=== PATIENT | female | born 1985 | race Caucasian/White ===

== ENCOUNTER 2016-06-08 18:16 | Inpatient (IN) | payer MEDICAID ==
[2016-06-08] MEDS ORDERED: Metoclopramide 10 MG/2 ML SDV ONE (18:23)
[2016-06-08] MEDS ORDERED: Citric Acid/Sodium Citrate Solution 30 ML Cup ONE ×2 (18:23→18:24)
[2016-06-08] MEDS ORDERED: Lactated Ringers 1,000 ML ONE (18:23)
[2016-06-08] MEDS: Lactated Ringers 1,000 ML IV SCH ×2 (19:15→20:00)
--- NOTE | 2016-06-08 19:20 | PCM.LDHP ---
<Shauna Jarquincelyn - Last Filed: 06/08/16 18:53> L&D History of Present Illness - General Date of Service: 06/08/16 Admit Problem/Dx: Admission Diagnosis/Problem Admission Diagnosis/Problem 06/08/16 18:53 Intrauterine at 38-1/7 weeks gestation with onset of labor and history of sections x2. Source of Information: Patient History Limitations: Reports: No limitations - History of Present Illness Introduction:: History of Present Illness: Rea is a 31-year-old 3 para 2-0-0-2 female with JOHN of 06/21/2016. She was scheduled for a repeat section on 06/16/16 but presented to clinic this afternoon with contractions that had been going on since earlier this morning. A contraction stress test was done in clinic and was negative - showed contractions every 3 minutes without HR decelerations. The procedure of repeat section, alternatives of care, risks and benefits, as well as followup were discussed with the patient. She decided to proceed with delivery this evening, once her gets to [facility] from working in [place]. [address] LIAISON History: The patient has had routine care throughout without complications except for some dry skin. LMP was before . Her previous two pregnancies ended in sections. First baby was born 2006 via emergent section and weighted 7lbs, 10oz. Second baby weighted 7lbs 11oz and was delivered via repeat section. Patient was not using control at time of conception. Her menses are typically regular , occurring every 28 days. Menarche was at age 17. No history of STIs. Blood type O positive, antibody negative. Rubella immune. VDRL/RPR nonreactive. Hepatitis B surface antigen negative. HIV test negative. Chlamydia and gonorrhea PCR also negative. Influenza vaccine was given. Tdap was declined. GBS positive. Medications: - vitamins Allergies: No known drug allergies. Past medical History: Noncontributory. Past surgical History: section x2. Family History: - Mom and dad are both alive and well. - Grandparents are all of unknown causes. - 2 brothers, 2 sisters - alive and well - 1 son, age 9 - alive and well - 1 daughter, age 4 - alive and well Social History: The patient lives in [place] with her significant other and two children. Patient denies use of tobacco products, alcohol, and illicit drugs. Review of Systems: - General: patient has been tired all day because she was up all night from contractions - Skin: no recent changes in skin or hair. - Cardiac: no palpitations or chest pain. - Respiratory: no shortness of breath or coughing - GI: negative. - : urinary changes related to Physical Exam: - General: The patient is a well-developed female in no acute distress. She has poor dentition and cracked lips. - Skin: warm and dry without lesions. - Cardiovascular: Regular rate and rhythm - Respiratory: Lungs clear to auscultation bilaterally - Breast exam: deferred - Abdomen: tightens with contractions. Uterus is gravid, appropriate with dates. - Cervical exam: closed, 0% effaced, -4 station, posterior - Extremities and neurological: grossly normal - Related Data Allergies/Adverse Reactions: Allergies Allergy/AdvReac Type Severity Reaction Status Date / Time No Known Allergies Allergy Verified 04/23/16 19:03 Home Medications: Home Meds . [No Known Home Meds] 08/23/15 [History] Past Medical History - Past Health History Medical/Surgical History: Denies Medical/Surgical History [address] LIAISON History: Reports: - Past Surgical History Female Surgical History: Reports: section (x 2) Social & Family History - Family History Family Medical History: Noncontributory - Tobacco Use Smoking Status *Q: Never Smoker Second Hand Smoke Exposure: No - Caffeine Use Caffeine Use: Reports: None - Alcohol Use Days Per Week of Alcohol Use: 0 - Recreational Drug Use Recreational Drug Use: No - Living Situation & Occupation Living situation: Reports: single, with family (2 kids) 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 Intrauterine at 38-1/7 weeks gestation admitted for repeat section secondary to onset of labor. 2. Group B strep positive 3. Declined Tdap vaccination Plan: 1. Repeat lower uterine segment transverse section under spinal block. Procedure, risk, benefits, complications have been discussed with the patient and she has signed the consent form. 2. SCDs for DVT prophylaxis during surgery and immediately after surgery 3. Ancef 2g IV for infection prophylaxis 4. Routine preoperative labs <Atilio Paz - Last Filed: 06/08/16 20:22> L&D History of Present Illness - General Admit Problem/Dx: Patient Status Order with Admit Dx/Problem 06/08/16 19:26 Patient Status [ADT] Routine Admission Diagnosis/Problem Admission Diagnosis/Problem H&P Review of Systems - Review of Systems: Review Of Systems: See Below L&D Exam - Exam Exam: See Below - Vital Signs Vital Signs: Last Vital Signs Temp 37.5 C 06/08/16 19:56 Pulse 84 06/08/16 19:56 Resp 19 06/08/16 19:56 BP 118/75 06/08/16 19:56 Pulse Ox 99 06/08/16 19:56 - Patient Data Lab Results last 24 hrs: Laboratory Results - last 24 hr 06/08/16 06/08/16 Range/Units 18:55 18:55 WBC 8.03 (3.98-10.04) K/mm3 RBC 4.79 (3.98-5.22) M/mm3 Hgb 12.9 (11.2-15.7) gm/L Hct 39.7 (34.1-44.9) % MCV 82.9 (79.4-94.8) fl MCH 26.9 (25.6-32.2) pg MCHC 32.5 (32.2-35.5) g/dl RDW Std Deviation 50.2 H (36.4-46.3) fL Plt Count 242 (182-369) K/mm3 MPV 12.1 (9.4-12.3) fl Neut % (Auto) 67.3 (34.0-71.1) % Lymph % (Auto) 22.9 (19.3-51.7) % Mcpherson % (Auto) 9.1 (4.7-12.5) % Eos % (Auto) 0.5 L (0.7-5.8) Baso % (Auto) 0.1 (0.1-1.2) % Neut # (Auto) 5.40 (1.56-6.13) K/mm3 Lymph # (Auto) 1.84 (1.18-3.74) K/mm3 Mcpherson # (Auto) 0.73 H (0.24-0.36) K/mm3 Eos # (Auto) 0.04 (0.04-0.36) K/mm3 Baso # (Auto) 0.01 (0.01-0.08) K/mm3 Blood Type O POSITIVE Gel Antibody Screen Negative Result Diagrams: 06/08/16 18:55 Problem List Initiated/Reviewed/Updated: Yes Orders Last 24hrs: Active Orders 24 hr Category Date Time Status Patient Status [ADT] Routine ADT 06/08/16 19:26 Active Communication Order [RC] ROUTINE Care 06/08/16 19:26 Active Heart Tones [RC] PER UNIT ROUTINE Care 06/08/16 19:26 Active Peripheral IV Care [RC] . DIRECTED Care 06/08/16 19:26 Active Procedure Site Prep Instruct [RC] ASDIRECTED Care 06/08/16 19:26 Active Verify Patient Consent Obtain [RC] PER UNIT ROUTINE Care 06/08/16 19:26 Active Vital Signs [RC] PFP Care 06/08/16 19:26 Active Citric Acid/Sodium Citrate [Bicitra Solution] Med 06/08/16 19:26 Once 30 ml PO ONETIME ONE Lactated Ringers [Ringers, Lactated] 1,000 ml Med 06/08/16 19:30 Ordered IV ASDIRECTED Metoclopramide [Reglan] Med 06/08/16 19:26 Once 10 mg IVPUSH ONETIME ONE Sodium Chloride 0.9% [Saline Flush] Med 06/08/16 19:26 Ordered 10 ml FLUSH ASDIRECTED PRN ceFAZolin [Ancef] 2 gm Med 06/08/16 19:26 Ordered Premix Bag 1 bag IV ONETIME Peripheral IV Insertion Adult [OM.PC] Routine Oth 06/08/16 19:26 Ordered Schedule Procedure [COMM] Per Unit Routine Oth 06/08/16 19:26 Ordered Resuscitation Status Routine Resus Stat 06/08/16 19:26 Ordered Medication Orders Citric Acid/Sodium Citrate (Bicitra Solution) 30 ml PO ONETIME ONE Stop: 06/08/16 19:27 Lactated Ringer's (Ringers, Lactated) 1,000 mls @ 125 mls/hr IV ASDIRECTED LALITA Cefazolin Sodium/Dextrose 2 gm (/ Premix) 50 mls @ 100 mls/hr IV ONETIME ONE Stop: 06/08/16 19:55 Metoclopramide HCl (Reglan) 10 mg IVPUSH ONETIME ONE Stop: 06/08/16 19:27 Sodium Chloride (Saline Flush) 10 ml FLUSH ASDIRECTED PRN PRN Reason: Keep Vein Open
[2016-06-08] MEDS ORDERED: Citric Acid/Sodium Citrate Solution 30 ML Cup PO ONE (19:26)
[2016-06-08] MEDS ORDERED: Sodium Chloride 0.9% 10 ML Syringe FLUSH PRN (19:26)
[2016-06-08] MEDS ORDERED: ceFAZolin 2 GM in Premix Bag 1 BAG IV ONE (19:26)
[2016-06-08] MEDS ORDERED: Metoclopramide 10 MG/2 ML SDV IVPUSH ONE (19:26)
[2016-06-08] MEDS ORDERED: Bupivacaine 0.5% 30 ML SDV ONE (19:36)
--- NOTE | 2016-06-08 19:41 | PCM.PREANE ---
Preanesthetic Assessment - Procedure Proposed Procedure: Repeat - Anesthesia/Transfusion/Family Hx Anesthesia History: Prior Anesthesia Without Reaction Family History of Anesthesia Reaction: No - Review of Systems General: No Symptoms Pulmonary: No Symptoms Cardiovascular: No Symptoms Gastrointestinal: No symptoms Neurological: No Symptoms Other: Reports: None - Physical Assessment NPO Status Date: 06/08/16 NPO Status Time: 14:25 Pulse: 84 O2 Sat by Pulse Oximetry: 99 Respiratory Rate: 19 Blood Pressure: 118/75 Temperature: 37.5 C Height: 1.5 m Weight: 48.534 kg ASA Class: 2 Mental Status: Alert & Oriented x3 Airway Class: Mallampati = 2 Dentition: Reports: Missing Tooth/Teeth Thyro-Mental Finger Breadths: 3 Mouth Opening Finger Breadths: 2 ROM/Head Extension: Full Lungs: Clear to auscultation, Normal respiratory effort Cardiovascular: Regular Rate, Regular Rhythm - Lab Values: CBC within normal limits - Allergies Allergies/Adverse Reactions: Allergies Allergy/AdvReac Type Severity Reaction Status Date / Time No Known Allergies Allergy Verified 04/23/16 19:03 - Blood Blood Available: No - Acknowledgements Anesthesia Type Planned: Spinal Pt an Appropriate Candidate for the Planned Anesthesia: Yes Alternatives and Risks of Anesthesia Discussed w Pt/Guardian: Yes Pt/Guardian Understands and Agrees with Anesthesia Plan: Yes PreAnesthesia Questionnaire - Past Health History Medical/Surgical History: Denies Medical/Surgical History [employer] History: Reports: - Past Surgical History Female Surgical History: Reports: section (x 2) - SUBSTANCE USE Smoking Status *Q: Never Smoker Second Hand Smoke Exposure: Yes Days Per Week of Alcohol Use: 0 Recreational Drug Use History: No - HOME MEDS Home Medications: Home Meds . [No Known Home Meds] 08/23/15 [History] - CURRENT (IN HOUSE) MEDS Current Meds: Current Medications Citric Acid/Sodium Citrate (Bicitra Solution) 30 ml PO ONETIME ONE Stop: 06/08/16 19:27 Lactated Ringer's (Ringers, Lactated) 1,000 mls @ 125 mls/hr IV ASDIRECTED LALITA Cefazolin Sodium/Dextrose 2 gm (/ Premix) 50 mls @ 100 mls/hr IV ONETIME ONE Stop: 06/08/16 19:55 Metoclopramide HCl (Reglan) 10 mg IVPUSH ONETIME ONE Stop: 06/08/16 19:27 Sodium Chloride (Saline Flush) 10 ml FLUSH ASDIRECTED PRN PRN Reason: Keep Vein Open Discontinued Medications Citric Acid/Sodium Citrate (Bicitra Solution) Confirm Administered Dose 30 ml .ROUTE .STK-MED ONE Stop: 06/08/16 18:24 Citric Acid/Sodium Citrate (Bicitra Solution) Confirm Administered Dose 30 ml .ROUTE .STK-MED ONE Stop: 06/08/16 18:25 Lactated Ringer's (Ringers, Lactated) Confirm Administered Dose 1,000 mls @ as directed .ROUTE .STK-MED ONE Stop: 06/08/16 18:24 Metoclopramide HCl (Reglan) Confirm Administered Dose 10 mg .ROUTE .STK-MED ONE Stop: 06/08/16 18:24 Preanesthetic Assessment - PHYSICAL ASSESSMENT Height: 1.5 m Weight: 48.534 kg - ALLERGIES Allergies/Adverse Reactions: Allergies Allergy/AdvReac Type Severity Reaction Status Date / Time No Known Allergies Allergy Verified 04/23/16 19:03
[2016-06-08] MEDS ORDERED: Oxytocin 10 Units/1 ML SDV ONE (20:08)
[2016-06-08] MEDS ORDERED: Morphine PF 10 MG/10 ML SDV ONE (20:08)
[2016-06-08] MEDS ORDERED: ceFAZolin 1 GM Vial ONE (20:16)
[2016-06-08] MEDS ORDERED: Phenylephrine/Normal Saline 100 MCG/ML 10 ML Syringe ONE (20:53)
[2016-06-08] MEDS ORDERED: diphenhydrAMINE 50 MG/ML SDV IVPUSH PRN ×2 (20:54→22:54)
[2016-06-08] MEDS ORDERED: Meperidine PF 50 MG/ML Syringe IVPUSH PRN (20:58)
[2016-06-08] MEDS ORDERED: Ketorolac 30 MG/ML SDV ONE (21:17)
--- NOTE | 2016-06-08 21:24 | PCM.OPNOTE ---
- General Post-Op/Procedure Note Date of Surgery/Procedure: 06/08/16 Operative Procedure(s): repeat lower uterine segment transverse section through Pfannenstiel skin incision Findings: patient had significant scarring from the anterior uterine wall to the anterior abdominal wall. This caused a superficial rent in the serosa of the anterior uterus. This however did not pass through the entire thickness of the uterine wall. Ovaries and fallopian tubes were within normal limits. Intra-abdominal wall had moderate scarring present. Pre Op Diagnosis: 38-4/7 week intrauterine , history of previous section x2, desire for repeat section, active labor. Post-Op Diagnosis: Same with delivery of a viable, 7 lbs. 11 oz. male infant with Apgars of 7 and 9 at 2038 hours on 06/08/2016. Anesthesia Technique: Spinal Other Anesthesia Type: Marcaine 0.5%-20 cc-local Primary Surgeon: Atilio Paz Secondary Surgeon: Nargis Otto Anesthesia Provider: Howard Reyes Clinical Trial Data Manager: Eloina Jarquin Fluid Replacement, Intraop: 1,450 Output, Urine Amount: 260 EBL in mLs: 700 Drain/Tube Comments:: indwelling bladder catheter Condition: Good Free Text/Narrative:: surgery duration: 41 minutes Complications: None Condition: Good Procedure: Patient was transferred the room and placed in a sitting position. Spinal anesthesia was administered. After adequate anesthesia patient was placed in a supine position with a wedge under her right side to facilitate left lateral positioning. The patient was prepped and draped in usual fashion after Bar catheter was placed. The anesthetic was checked and found to be adequate. Marcaine 0.5%-20 cc was infiltrated into the section incision site. The Pfannenstiel skin incision was then made carried down to skin subcutaneous and fascial layers. The fascia was then undermined superiorly and inferiorly to allow for adequate operating room. The recti muscles were midline and preperitoneal fat was bluntly dissected. Peritoneal cavity was entered longitudinally.dense adhesions were encountered. These included adhesions from anterior uterine serosal surface to the anterior abdominal wall. These were taken down it resulted in somewhat of a superficial rent in the serosal surface of the anterior uterus. The vesicouterine peritoneum was then incised transversely and bladder flap was developed. Myometrium was incised transversely to the level of the amniotic sac. This incision was extended bilaterally in a blunt fashion. The amniotic sac was then ruptured resulting clear amniotic fluid. A hand is placed into the lower uterine segment and the baby's head was brought forth through the incision. The baby was completely delivered using with fundal pressure in a routine fashion. The nose and mouth were bulb suctioned. Baby's cord was clamped x2 cut and baby was handed off to attending cardiovascular disease specialist Dr. JUAREZ. Placenta was expressed after cord blood was obtained. Uterus was then exteriorized to allow for easier closure. The cervix was assessed and found to be dilated adequately to allow egress of blood. The uterus was closed in 2 layers. The first layer a running locked suture of 0 Monocryl, the second layer a running locked vertical mattress suture of 0 Monocryl. the anterior vertical rent in the serosal surface of the uterus was then reapproximated with 0 Monocryl suture in a running locked fashion. All bleeders were controlled with [id number] sutures.Hemostasis confirmed at this time. 2 surface of the uterus was covered with Interceed to help reduce risk of adhesion formation. Sponge, instrument, needle counts are correct. The uterus was returned to the abdominal cavity and lateral gutters were cleared of blood. Once again sponge, needle counts are correct. The anterior abdominal wall was closed with a #1 PDS suture from angle to angle. The subcutaneous area was a somewhat using cutting cautery because of scarring in the subcutaneous area. Cautery was used to control bleeders in this area. Hemostasis was then confirmed and the skin was closed. Skin was closed with a running subcuticular stitch of 3-0 Monocryl in a vertical mattress suture fashion using a Tanner needle. It was further approximated with Dermabond Prineo skin mesh/glue. It should be noted that patient received 2 g of Ancef preoperatively for infection prophylaxis and had Pitocin infused after delivery of the placenta to facilitate uterine contraction. She also had sequential compression stockings in place for DVT prophylaxis.
--- NOTE | 2016-06-08 21:29 | PCM.POSTAN ---
POST ANESTHESIA ASSESSMENT - MENTAL STATUS Mental Status: alert, oriented - VITAL SIGNS Pulse Rate: 79 SaO2: 100 Resp Rate: 13 Blood Pressure: 109/63 Temperature: 36.8 C - RESPIRATORY Respiratory Status: respiratory rate WNL, airway patent, O2 saturation stable - CARDIOVASCULAR CV Status: pulse rate WNL, blood pressure stable - GASTROINTESTINAL GI Status: no symptoms - PAIN Pain Score: 0 - POST OP HYDRATION Hydration Status: adequate & stable
[2016-06-08] MEDS ORDERED: Naloxone 0.4 MG/ML SDV IVPUSH PRN (22:54)
[2016-06-08] MEDS ORDERED: Dextrose 5%-Lactated Ringers 1,000 ML IV SCH (22:54)
[2016-06-08] MEDS ORDERED: Dextrose 5%-0.45% NaCl 1,000 ML IV SCH (22:54)
[2016-06-08] MEDS ORDERED: Lanolin 100% Cream 7 GM Tube TOP PRN (22:54)
[2016-06-08] MEDS ORDERED: Ondansetron 4 MG/2 ML SDV IV PRN (22:54)
[2016-06-08] MEDS ORDERED: Acetaminophen/oxyCODONE 325-5 MG Tab PO PRN (22:54)
[2016-06-08] MEDS ORDERED: ePHEDrine 50 MG/ML SDV IVPUSH PRN (22:54)
[2016-06-08] MEDS ORDERED: Docusate Sodium 100 MG Cap PO PRN (22:54)
[2016-06-08] MEDS ORDERED: Ibuprofen 800 MG Tab PO SCH (22:54)
[2016-06-08] MEDS: Simethicone 80 MG Tab.Chew PO SCH (23:17)
[2016-06-09] MEDS: Ibuprofen 800 MG Tab PO SCH ×3 (03:50→18:24)
--- NOTE | 2016-06-09 07:30 | PCM48HPAN ---
Post Anesthesia Note - EVALUATION WITHIN 48HRS OF ANESTHETIC Vital Signs in Normal Range: Yes Patient Participated in Evaluation: Yes Respiratory Function Stable: Yes Airway Patent: Yes Cardiovascular Function Stable: Yes Hydration Status Stable: Yes Pain Control Satisfactory: Yes Nausea and Vomiting Control Satisfactory: Yes Mental Status Recovered: Yes
[2016-06-09] MEDS: Simethicone 80 MG Tab.Chew PO SCH ×4 (08:22→21:53)
[2016-06-09] MEDS: Prenatal Multivitamin with Calcium/Folic Acid/Iron Tab PO SCH (08:22)
--- NOTE | 2016-06-09 17:21 | PCM.SN ---
- Free Text/Narrative Note: Subjective: Rea is post-op day 1 after repeat section. She is feeling pretty good today. She has been able to get up and go to the bathroom and drink plenty of fluids. She was on a clear diet until this morning and was hungry for solid food. Lochia has been steady but is slowing down. Prior to the section, she planned to breast feed, however, this morning she reports she is going to bottle feed. Objective: Vitals are stable - she is afebrile and is not tachycardic. WBC 11.27, RBC 3.82, Hgb 10.3, Hct 31.7%. Incision site is clean and dry. Uterus is firm, below the umbilicus. Assessment: 1. Status post-repeat section. 2. Patient plans to bottle feed. Plan: 1. Continue monitoring and plan discharge tomorrow or the next day. 2. Encourage activity and fluid intake.
[2016-06-09] MEDS ORDERED: Acetaminophen/oxyCODONE 325-5 MG Tab PO PRN (17:47)
[2016-06-09] MEDS: Acetaminophen/oxyCODONE 325-5 MG Tab PO PRN (20:00)
[2016-06-10] MEDS: Acetaminophen/oxyCODONE 325-5 MG Tab PO PRN ×5 (00:24→21:02)
[2016-06-10] MEDS: Ibuprofen 800 MG Tab PO SCH ×3 (02:47→20:29)
[2016-06-10] MEDS: Prenatal Multivitamin with Calcium/Folic Acid/Iron Tab PO SCH (08:01)
[2016-06-10] MEDS: Simethicone 80 MG Tab.Chew PO SCH ×3 (08:02→21:02)
--- NOTE | 2016-06-10 09:24 | PCM.SN ---
- Free Text/Narrative Note: Rea is doing reasonably well this morning. She did not get much sleep because the baby last night. Patient is bottlefeeding. Pain control has been adequately controlled. Lochia is minimal. She is up in a sharp. Vital signs stable, patient is afebrile. Abdomen shows uterus at umbilicus. Incision is dry, intact and appears to be healing well. Legs nontender and without edema. Assessment/plan: Postoperative day 2-approximately 36 hours status post delivery by repeat section-doing reasonably well. Plan to keep patient until tomorrow. Routine cares.
[2016-06-11] MEDS: Ibuprofen 800 MG Tab PO SCH ×2 (04:20→13:04)
--- NOTE | 2016-06-11 05:19 | PCM.DCSUM1 ---
Discharge Summary - Hospital Course Free Text/Narrative:: Rea is a multiparous patient who was admitted for emergent repeat section. Had been seen in clinic, was found to be neda every 3 minutes. She had had 2 previous sections was scheduled for section next week but was admitted for emergent section because of labor. During the course of her surgery she was found to have significant scarring from the anterior uterine wall to the anterior abdominal wall. This caused a superficial rent in the serosa of the anterior uterus. This however did not pass through the entire thickness of the uterine wall. Ovaries and fallopian tubes were within normal limits. Intra-abdominal wall had moderate scarring present. She delivered a viable, 7 lbs. 11 oz. male with Apgars of 7 and 9 at 2038 hours on 06/08/2016. the patient was done well. She relatively good pain relief with Percocet and ibuprofen. She is bottle feeding. She is ready for discharge. - Discharge Data Discharge Date: 06/11/16 Discharge Disposition: Home, Self-Care 01 Condition: Good - Patient Summary/Data Operative Procedure(s) Performed: repeat lower uterine segment transverse section through Pfannenstiel skin incision - Patient Instructions Diet: Regular Diet as Tolerated Activity: As Tolerated Driving: Do Not Drive Showering/Bathing: May Shower Wound/Incision Care: Keep Operative Site/Wound Site Clean and Dry, Change Dressing Daily, Do NOT Change Dressing Notify Provider of: Fever, Increased Pain, Swelling and Redness, Drainage, Nausea and/or Vomiting - Discharge Plan Prescriptions/Med Rec: Acetaminophen/oxyCODONE [Percocet 325-5 MG] 2 tab PO Q4H PRN #30 tablet PRN Reason: Pain Home Medications: Home Meds Acetaminophen/oxyCODONE [Percocet 325-5 MG] 2 tab PO Q4H PRN #30 tablet [Rx] Ibuprofen [IJD: Ibuprofen] 600 mg PO Q4H PRN #30 tablet 06/11/16 [Rx] Referrals: Atilio Paz MD [Primary Care Provider] - (Return to clinic-Dr. Paz-4 weeks-[facility]-[place].) - Discharge Summary/Plan Comment DC Time >30 min.: No Discharge Summary/Plan Comment: Discharge instructions: 1. Discharge home 2. Regular, high fiber diet. 3. Precautions given concern increased pain, bleeding, temperature, signs/ symptoms of DVT/PE. 4. Medications per home medication was printed, discussed with and given to the patient. 5. Return to clinic-Dr. Paz-4 weeks-[facility]. Diagnosis: 1. 38-4/7 week intrauterine -delivered 2. History of previous section x2 with repeat section Condition: Good - Patient Data Vitals - Most Recent: Last Vital Signs Temp 36.7 C 06/10/16 20:20 Pulse 70 06/10/16 20:20 Resp 18 06/10/16 20:20 BP 103/61 06/10/16 20:20 Pulse Ox 100 06/10/16 20:20 Weight - Most Recent: 48.534 kg I&O - Last 24 hours: Intake & Output 06/10/16 06/10/16 06/11/16 14:59 22:59 06:59 Intake Total 0 Balance 0 Med Orders - Current: Current Medications Diphenhydramine HCl (Benadryl) 25 mg IVPUSH Q6H PRN PRN Reason: Itching or Nausea Last Admin: 06/09/16 00:36 Dose: 25 mg Docusate Sodium (Colace) 100 mg PO Q12H PRN PRN Reason: Constipation Emollient Ointment (Lansinoh Hpa) 0 gm TOP ASDIRECTED PRN PRN Reason: Sore Nipples Ephedrine Sulfate (Ephedrine Sulfate) 5 mg IVPUSH SEECOMMENT PRN PRN Reason: Other Dextrose/Sodium Chloride (Dextrose 5%-1/2 Ns) 1,000 mls @ 125 mls/hr IV ASDIRECTED [facility] Ibuprofen (Motrin) 800 mg PO Q8H LALITA Last Admin: 06/10/16 20:29 Dose: 800 mg Naloxone HCl (Narcan) 0.1 mg IVPUSH SEECOMMENT PRN PRN Reason: Respiratory Depression Ondansetron HCl (Zofran) 4 mg IV Q4H PRN PRN Reason: Nausea/Vomiting Oxycodone/Acetaminophen (Percocet 325-5 Mg) 2 tab PO Q4H PRN PRN Reason: Pain Last Admin: 06/10/16 21:02 Dose: 2 tab Prenat Multivit/[place]/Iron/Folic Ac ( Plus Iron) 1 each PO DAILY [facility] Last Admin: 06/10/16 08:01 Dose: 1 each Simethicone (Simethicone) 80 mg PO PCBED [facility] Last Admin: 06/10/16 21:02 Dose: 80 mg Discontinued Medications Bupivacaine HCl (Marcaine 0.5%) Confirm Administered Dose 30 ml .ROUTE .STK-MED ONE Stop: 06/08/16 19:37 Last Admin: 06/08/16 20:34 Dose: 20 ml Cefazolin Sodium (Ancef) Confirm Administered Dose 2 gm .ROUTE .ST-MED ONE Stop: 06/08/16 20:17 Citric Acid/Sodium Citrate (Bicitra Solution) Confirm Administered Dose 30 ml .ROUTE .[facility] ONE Stop: 06/08/16 18:24 Last Admin: 06/08/16 22:53 Dose: Not Given Citric Acid/Sodium Citrate (Bicitra Solution) Confirm Administered Dose 30 ml .ROUTE .[facility] ONE Stop: 06/08/16 18:25 Last Admin: 06/08/16 22:53 Dose: Not Given Citric Acid/Sodium Citrate (Bicitra Solution) 30 ml PO ONETIME ONE Stop: 06/08/16 19:27 Last Admin: 06/08/16 19:55 Dose: 30 ml Diphenhydramine HCl (Benadryl) 12.5 mg IVPUSH Q15M PRN PRN Reason: pruritis Stop: 06/08/16 21:40 Lactated Ringer's (Ringers, Lactated) Confirm Administered Dose 1,000 mls @ as directed .ROUTE .[facility] ONE Stop: 06/08/16 18:24 Last Admin: 06/08/16 22:53 Dose: Not Given Lactated Ringer's (Ringers, Lactated) 1,000 mls @ 125 mls/hr IV ASDIRECTED [facility] Last Admin: 06/08/16 20:00 Dose: 125 mls/hr Cefazolin Sodium/Dextrose 2 gm (/ Premix) 50 mls @ 100 mls/hr IV ONETIME ONE Stop: 06/08/16 19:55 Last Admin: 06/10/16 13:53 Dose: Not Given Dextrose/Lactated Ringer's (Dextrose 5%-Lactated Ringers) 1,000 mls @ 125 mls/ hr IV ASDIRECTED [facility] Stop: 06/09/16 06:53 Last Admin: 06/08/16 23:18 Dose: 125 mls/hr Ibuprofen (Motrin) 800 mg PO Q8H [facility] Last Admin: 06/10/16 13:54 Dose: Not Given Ketorolac Tromethamine (Toradol) Confirm Administered Dose 30 mg .ROUTE .STK- MED ONE Stop: 06/08/16 21:18 Meperidine HCl (Demerol) 12.5 mg IVPUSH ONETIME PRN PRN Reason: Shivering Stop: 06/09/16 20:59 Metoclopramide HCl (Reglan) Confirm Administered Dose 10 mg .ROUTE .STK-MED ONE Stop: 06/08/16 18:24 Last Admin: 06/08/16 22:53 Dose: Not Given Metoclopramide HCl (Reglan) 10 mg IVPUSH ONETIME ONE Stop: 06/08/16 19:27 Last Admin: 06/08/16 19:55 Dose: 10 mg Morphine Sulfate (Duramorph Pf) Confirm Administered Dose 10 mg .ROUTE .STK-MED ONE Stop: 06/08/16 20:09 Oxycodone/Acetaminophen (Percocet 325-5 Mg) 2 tab PO Q4H PRN PRN Reason: Pain (moderate 4-6) Last Admin: 06/09/16 14:24 Dose: 1 tab Oxycodone/Acetaminophen (Percocet 325-5 Mg) 1 tab PO Q3H PRN PRN Reason: Pain Oxycodone/Acetaminophen (Percocet 325-5 Mg) 1 tab PO Q3H PRN PRN Reason: Pain Last Admin: 06/10/16 03:33 Dose: 1 tab Oxytocin (Pitocin) Confirm Administered Dose 10 unit .ROUTE .STK-MED ONE Stop: 06/08/16 20:09 Phenylephrine HCl (Phenylephrine In Ns 100 Mcg/Ml) Confirm Administered Dose 1 mg .ROUTE .STK-MED ONE Stop: 06/08/16 20:54 Sodium Chloride (Saline Flush) 10 ml FLUSH ASDIRECTED PRN PRN Reason: Keep Vein Open *Q Meaningful Use (DIS) - VTE *Q VTE Criteria *Q: - Stroke *Q Stroke Criteria *Q: - AMI *Q AMI Criteria *Q:
[2016-06-11] MEDS: Simethicone 80 MG Tab.Chew PO SCH ×3 (05:40→13:04)
[2016-06-11] MEDS: Acetaminophen/oxyCODONE 325-5 MG Tab PO PRN (06:47)
[2016-06-11] MEDS: Prenatal Multivitamin with Calcium/Folic Acid/Iron Tab PO SCH (09:09)
[2016-06-11 11:12] VITALS: BP 107/62
== END 2016-06-11 13:15 | disposition home or self-care (01) | DRG 766 ==
LOC: JD.OB 18:16
PROVIDERS: ADMIT Obstetrics & Gynecology; ATTEND Obstetrics & Gynecology
PROC: 10D00Z1 Extraction of Products of Conception, Low, Open Approach (ICD-10-PCS; principal; 2016-06-08)
DX: O34.211 Maternal care for low transverse scar from previous cesarean delivery (principal); N85.8 Other specified noninflammatory disorders of uterus; O99.824 Streptococcus B carrier state complicating childbirth; Z3A.39 39 weeks gestation of pregnancy; Z37.0 Single live birth
CPT/HCPCS: 01961; 36415; 85025; 86850; 86900; 86901; 94762; A9270-GY; C1765; J0690; J1200; J1885; J2270; J2590; J2765; J7042; J7120

== ENCOUNTER 2016-12-05 13:30 | Emergency (ER) | payer MEDICAID ==
[2016-12-05 13:45] VITALS: BP 112/76
--- NOTE | 2016-12-05 14:22 | EDM.PDOC ---
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 The patient states that she has not been using control. Her period was late so she checked a home test several days ago and it was positive. Today she started to have some vaginal bleeding. States it feels like a normal period. She has some mild lower abdominal discomfort, cramping, similar to with menses. No significant abdominal pain. Bleeding just started today about an hour ago. Moderate flow, no clots. Lower Pelvic Pain Score (Numeric/FACES): 2 - Related Data Allergies Allergy/AdvReac Type Severity Reaction Status Date / Time No Known Allergies Allergy Verified 04/23/16 19:03 Home Meds: Home Meds . 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: - Past Surgical History Head Surgeries/Procedures: Reports: None Female Surgical History: Reports: Section Social & Family History - Family History Family Medical History: Noncontributory - Tobacco Use Smoking Status *Q: Never Smoker Second Hand Smoke Exposure: Yes - Caffeine Use Caffeine Use: Reports: Coffee, Soda, Tea - Alcohol Use Days Per Week of Alcohol Use: 0 - Recreational Drug Use Recreational Drug Use: No - Living Situation & Occupation Living situation: Reports: Single, with Family Occupation: Employed ED ROS GENERAL - Review of Systems Review Of Systems: See Below Constitutional: Reports: No Symptoms HEENT: Reports: No Symptoms Respiratory: Denies: Shortness of Breath Cardiovascular: Reports: No Symptoms Endocrine: Reports: No Symptoms GI/Abdominal: Denies: Abdominal Pain : Denies: Dysuria Musculoskeletal: Reports: No Symptoms ED EXAM - Physical Exam Exam: See Below Exam Limited By: No Limitations General Appearance: Alert, WD/WN, No Apparent Distress Eye Exam: Bilateral Eye: Normal Inspection Ears: Normal External Exam Nose: Normal Inspection Throat/Mouth: Normal Inspection, Normal Voice, No Airway Compromise Head: Atraumatic, Normocephalic Neck: Normal Inspection, Supple, Non-Tender, Full Range of Motion Respiratory/Chest: No Respiratory Distress, Lungs Clear, Normal Breath Sounds Cardiovascular: Normal Peripheral Pulses, Regular Rate, Rhythm GI/Abdominal Exam: Soft, Non-Tender, No Distention (Female) Exam: Normal External Exam, Vaginal Bleeding, Other (mild to moderate, no clots). No: Cervical Dilatation, Products of Conception Extremities: Normal Inspection Neurological: Alert, Oriented Psychiatric: Normal Affect, Normal Mood Skin Exam: Warm, Dry, Intact, Normal Color, No Rash Course - Vital Signs Last Recorded V/S: Last Vital Signs Temp 37.1 C 12/05/16 13:43 Pulse 87 12/05/16 13:43 Resp 20 12/05/16 13:43 BP 112/76 12/05/16 13:43 Pulse Ox 100 12/05/16 13:43 - Orders/Labs/Meds Labs: Laboratory Tests 12/05/16 12/05/16 Range/Units 14:05 14:05 WBC 8.59 (3.98-10.04) K/mm3 RBC 4.51 (3.98-5.22) M/mm3 Hgb 13.5 (11.2-15.7) gm/L Hct 39.1 (34.1-44.9) % MCV 86.7 (79.4-94.8) fl MCH 29.9 (25.6-32.2) pg MCHC 34.5 (32.2-35.5) g/dl RDW Std Deviation 38.5 (36.4-46.3) fL Plt Count 296 (182-369) K/mm3 MPV 10.5 (9.4-12.3) fl Neut % (Auto) 74.6 H (34.0-71.1) % Lymph % (Auto) 18.4 L (19.3-51.7) % Lee % (Auto) 6.4 (4.7-12.5) % Eos % (Auto) 0.3 L (0.7-5.8) Baso % (Auto) 0.1 (0.1-1.2) % Neut # (Auto) 6.40 H (1.56-6.13) K/mm3 Lymph # (Auto) 1.58 (1.18-3.74) K/mm3 Lee # (Auto) 0.55 H (0.24-0.36) K/mm3 Eos # (Auto) 0.03 L (0.04-0.36) K/mm3 Baso # (Auto) 0.01 (0.01-0.08) K/mm3 Sodium 140 (136-145) mEq/L Potassium 3.7 (3.5-5.1) mEq/L Chloride 108 H (98-107) mEq/L Carbon Dioxide 25 (21-32) mEq/L Anion Gap 10.7 (5-15) BUN 9 (7-18) mg/dL Creatinine 0.8 (0.55-1.02) mg/dL Est Cr Clr Drug Dosing 71.33 mL/min Estimated GFR (MDRD) > 60 (>60) mL/min BUN/Creatinine Ratio 11.3 L (14-18) Glucose 112 H (74-106) mg/dL Calcium 9.1 (8.5-10.1) mg/dL Total Bilirubin 0.3 (0.2-1.0) mg/dL AST 13 L (15-37) U/L ALT 15 (14-59) U/L Alkaline Phosphatase 47 (46-116) U/L Total Protein 7.2 (6.4-8.2) g/dl Albumin 3.8 (3.4-5.0) g/dl Globulin 3.4 gm/dL Albumin/Globulin Ratio 1.1 (1-2) HCG, Quant 367.0 mIU/mL - Re-Assessments/Exams Free Text/Narrative Re-Assessment/Exam: 12/05/16 15:25 Labs and exam consistent with threatened . I discussed this with the patient extensively. She will need to follow-up with her OB doctor in 2-3 days for a recheck and repeat hCG. She understood. Discussed return precautions. Departure - Departure Time of Disposition: 15:25 Disposition: Home, Self-Care 01 Clinical Impression: Threatened - Discharge Information Referrals: Atilio Paz MD [Primary Care Provider] - Forms: ED Department Discharge Additional Instructions: 1. Follow up with Dr. Paz this week, ideally Tuesday or Tuesday. Inform him that you a possible miscarriage. He can recheck your hormone and see how you are doing and provide further care. 2. Return to the Emergency Department if you have severe abdominal pain or very heavy bleeding or any other concerning symptoms.
== END 2016-12-05 16:20 | disposition home or self-care (01) ==
LOC: SUPCPDRO 13:30 → JD.ED 13:30
DX: O20.0 Threatened abortion (principal); Z3A.01 Less than 8 weeks gestation of pregnancy
CPT/HCPCS: 36415; 80053; 84702; 85025; 99283; 99284

== ENCOUNTER 2017-12-05 05:35 | Inpatient (IN) | payer SELFPAY ==
[~2017-12-05 05:35] MED LIST: Citric Acid/Sodium Citrate Solution 30 ML Cup PO ONE; Lactated Ringers 1,000 ML IV SCH; Metoclopramide 10 MG/2 ML SDV IVPUSH ONE; Nalbuphine 20 MG/ML 1 ML Syringe IVPUSH PRN; Oxytocin/Lactated Ringers 10 UNIT/1,000 ML BAG IV SCH; Sodium Chloride 0.9% 10 ML Syringe FLUSH PRN; ceFAZolin 2 GM in Premix Bag 1 BAG IV ONE
[2017-12-05] MEDS ORDERED: Ondansetron 4 MG/2 ML SDV ONE (06:43)
[2017-12-05] MEDS ORDERED: Lactated Ringers 2,000 ML ONE (06:43)
[2017-12-05] MEDS ORDERED: ceFAZolin 1 GM Vial ONE (06:43)
[2017-12-05] MEDS ORDERED: Ketorolac 30 MG/ML SDV ONE (06:43)
[2017-12-05] MEDS ORDERED: Oxytocin 10 Units/1 ML SDV ONE ×2 (06:43→06:45)
[2017-12-05] MEDS ORDERED: Lidocaine 1% 4 ML ONE (06:47)
[2017-12-05] MEDS ORDERED: Bupivacaine 0.75%/D5W 2 ML Amp ONE (06:48)
[2017-12-05] MEDS ORDERED: Morphine PF 1 MG/ML Amp ONE (06:50)
[2017-12-05] MEDS ORDERED: Bupivacaine 0.5% 30 ML SDV ONE (07:03)
--- NOTE | 2017-12-05 07:09 | PCM.PREANE ---
Preanesthetic Assessment - Procedure Proposed Procedure: repeart c section - Anesthesia/Transfusion/Family Hx Anesthesia History: Prior Anesthesia Without Reaction Family History of Anesthesia Reaction: No Transfusion History: No Prior Transfusion(s) - Review of Systems General: No Symptoms Pulmonary: No Symptoms Cardiovascular: No Symptoms Gastrointestinal: No Symptoms Neurological: No Symptoms Other: Reports: None - Physical Assessment NPO Status Date: 12/04/17 NPO Status Time: 23:30 Pulse: 59 O2 Sat by Pulse Oximetry: 98 Respiratory Rate: 16 Blood Pressure: 110/79 Temperature: 98.3 F Height: 4 ft 11 in Weight: 50.802 kg ASA Class: 2 Mental Status: Alert & Oriented x3 Airway Class: Mallampati = 1 Dentition: Reports: Normal Dentition Thyro-Mental Finger Breadths: 3 Mouth Opening Finger Breadths: 3 ROM/Head Extension: Full Lungs: Clear to Auscultation, Normal Respiratory Effort Cardiovascular: Regular Rate, Regular Rhythm - Lab Values: Laboratory Last Values WBC 7.00 K/mm3 (3.98-10.04) 12/05/17 06:18 RBC 4.62 M/mm3 (3.98-5.22) 12/05/17 06:18 Hgb 11.9 gm/L (11.2-15.7) 12/05/17 06:18 Hct 37.3 % (34.1-44.9) 12/05/17 06:18 MCV 80.7 fl (79.4-94.8) 12/05/17 06:18 MCH 25.8 pg (25.6-32.2) 12/05/17 06:18 MCHC 31.9 g/dl (32.2-35.5) L 12/05/17 06:18 RDW Std Deviation 54.3 fL (36.4-46.3) H 12/05/17 06:18 Plt Count 195 K/mm3 (182-369) 12/05/17 06:18 MPV 12.2 fl (9.4-12.3) 12/05/17 06:18 Neut % (Auto) 57.6 % (34.0-71.1) 12/05/17 06:18 Lymph % (Auto) 33.0 % (19.3-51.7) 12/05/17 06:18 [place] % (Auto) 7.9 % (4.7-12.5) 12/05/17 06:18 Eos % (Auto) 1.1 (0.7-5.8) 12/05/17 06:18 Baso % (Auto) 0.3 % (0.1-1.2) 12/05/17 06:18 Neut # (Auto) 4.03 K/mm3 (1.56-6.13) 12/05/17 06:18 Lymph # (Auto) 2.31 K/mm3 (1.18-3.74) 12/05/17 06:18 [place] # (Auto) 0.55 K/mm3 (0.24-0.36) H 12/05/17 06:18 Eos # (Auto) 0.08 K/mm3 (0.04-0.36) 12/05/17 06:18 Baso # (Auto) 0.02 K/mm3 (0.01-0.08) 12/05/17 06:18 - Allergies Allergies/Adverse Reactions: Allergies Allergy/AdvReac Type Severity Reaction Status Date / Time No Known Allergies Allergy Verified 04/23/16 19:03 - Blood Blood Available: No - Acknowledgements Anesthesia Type Planned: Spinal Pt an Appropriate Candidate for the Planned Anesthesia: Yes Alternatives and Risks of Anesthesia Discussed w Pt/Guardian: Yes Pt/Guardian Understands and Agrees with Anesthesia Plan: Yes PreAnesthesia Questionnaire - Past Health History Medical/Surgical History: Denies Medical/Surgical History Cardiovascular History: Reports: None Respiratory History: Reports: None Gastrointestinal History: Reports: GERD (with preg) 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 [No Known Home Meds] 12/05/16 [History] - CURRENT (IN HOUSE) MEDS Current Meds: Current Medications Lactated Ringer's (Ringers, Lactated) 1,000 mls @ 125 mls/hr IV ASDIRECTED [facility] Oxytocin 20 unit/ Lactated (Ringer's) 1,002 mls @ 100 mls/hr IV TITRATE [facility] Nalbuphine HCl (Nubain) 10 mg IVPUSH Q2H PRN PRN Reason: pain Sodium Chloride (Saline Flush) 10 ml FLUSH ASDIRECTED PRN PRN Reason: Keep Vein Open Discontinued Medications Bupivacaine HCl/Dextrose (Marcaine 0.75% Spinal) Confirm Administered Dose 2 ml .ROUTE .STK-MED ONE Stop: 12/05/17 06:49 Cefazolin Sodium (Ancef) Confirm Administered Dose 2 gm .ROUTE .STK-MED ONE Stop: 12/05/17 06:44 Citric Acid/Sodium Citrate (Bicitra Solution) 30 ml PO ONETIME ONE Stop: 12/05/17 04:41 Cefazolin Sodium/Dextrose 2 gm (/ Premix) 50 mls @ 100 mls/hr IV ONETIME ONE Stop: 12/05/17 05:09 Oxytocin/Lactated Ringer's (Pitocin In Lr 10 Units/1,000 Ml) 10 unit in 1,000 mls @ 100 mls/hr IV ASDIRECTED [facility] Lactated Ringer's (Ringers, Lactated) Confirm Administered Dose 2,000 mls @ as directed .ROUTE .STK-MED ONE Stop: 12/05/17 06:44 Lidocaine HCl (Xylocaine-Mpf 1%) Confirm Administered Dose 4 mls @ as directed .ROUTE .STK-MED ONE Stop: 12/05/17 06:48 Ketorolac Tromethamine (Toradol) Confirm Administered Dose 30 mg .ROUTE .STK- MED ONE Stop: 12/05/17 06:44 Metoclopramide HCl (Reglan) 10 mg IVPUSH ONETIME ONE Stop: 12/05/17 04:41 Morphine Sulfate (Duramorph Pf) Confirm Administered Dose 1 mg .ROUTE .STK-MED ONE Stop: 12/05/17 06:51 Ondansetron HCl (Zofran) Confirm Administered Dose 4 mg .ROUTE .STK-MED ONE Stop: 12/05/17 06:44 Oxytocin (Pitocin) Confirm Administered Dose 10 unit .ROUTE .STK-MED ONE Stop: 12/05/17 06:44 Oxytocin (Pitocin) Confirm Administered Dose 10 unit .ROUTE .STK-MED ONE Stop: 12/05/17 06:46
[2017-12-05] MEDS ORDERED: ePHEDrine/Normal Saline 25 MG/5 ML Syringe ONE (07:37)
[2017-12-05] MEDS ORDERED: Ondansetron 4 MG/2 ML SDV IVPUSH PRN (07:42)
--- NOTE | 2017-12-05 07:59 | HP ---
DATE OF ADMISSION: 12/05/2017 ADMISSION DIAGNOSES: 39 and 3/7 weeks intrauterine , history of previous section x3, desire for repeat section. HISTORY OF PRESENT ILLNESS: Rea is a 32-year-old, 5, para 3-0-1-3 with a final JOHN of 12/09/2017 as determined by last menstrual period starting 03/04/2017 and supported by 2 ultrasounds done on 06/24/2017 and 07/28/2017. She is admitted for elective repeat section. The patient has had a previous rent in her anterior uterine wall with last section and is desiring a bilateral salpingectomy to avoid problems with future pregnancies. The procedure of repeat section with bilateral salpingectomy is discussed in detail including risks, benefits, alternatives of care, and permanency of the bilateral salpingectomy. She appears to understand, she has signed consent and is wishing to proceed. 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 LMP certain on 03/04/2017 onset. Not using any control at the time of conception. Cycles are regular every 28 days, menarche age 17. Her previous pregnancies have included: 1. Male born 12/05/2004 after 40 weeks gestational age - 7 pounds 10 ounces - primary section done emergently in [place]. Child's name is Peri. 2. Female born 04/21[birth year]2012 after 39 weeks gestational age - 7 pounds 11 ounces - born in [place], [place] - repeat section - child's name is Germán. 3. Male born 06/08/2016 at 38 weeks gestational age - 7 pounds 11 ounces - repeat section - born in [place] - child's name is Monty. With this and delivery, the patient is noted to have very thin uterus with a separation of the uterine scar. 4. Miscarriage, first trimester, 11/12/2016 at 5 weeks gestational age. course has been relatively unremarkable. The patient has group B strep negative status. She has had EPDS score of 4 on a scale of 30. Weight gain has been appropriate. Weight on her last visit was 110 with gaining weight of 87.6. Her fundal height growth has been appropriate. Baby is in a vertex presentation. Laboratory testing in shows blood to be O positive with negative antibody screen. Platelets at first visit were 292,000 with hemoglobin at 14.0 g/dL. Pap smear was normal. Rubella titer showed immunity. Second trimester testing showed hemoglobin 10.5 g/dL and platelets of 168,000. Her group B strep screen was negative. ALLERGIES: None. CURRENT MEDICATIONS: 1. vitamins. 2. Iron in the form of ferrous sulfate 325 mg p.o. daily. PAST MEDICAL HISTORY: Miscarriage x1. PAST SURGICAL HISTORY: x3 in 2006, 2012, and 2017. FAMILY HISTORY: The patient has 3 children, 10-year-old boy, 5-year-old girl, and 1-year-old son, all healthy. Four siblings all healthy. Mother is alive and well. Father is alive and well. Maternal grandmother , cause unknown. Maternal grandfather , cause unknown. Paternal grandmother secondary to age and cardiac problems. Paternal grandfather at a young age, cause unknown. No bleeding, blood clotting, asthma, or anesthesia problems noted in the family. SOCIAL HISTORY: The patient is single. She is a high-school graduate. She lives in [place]. Her significant other is Nelson Ayala. She does not use any significant alcohol, drugs or tobacco. REVIEW OF SYSTEMS: GENERAL: The patient has no major concerns. She has not had any bleeding or abdominal pain during the . Baby has been active. SKIN: Negative. CARDIOVASCULAR: No chest pain or shortness of breath. RESPIRATORY: No infectious symptoms. BREASTS: Changes associated with . The patient does plan to breastfeed. GI: Negative. : Changes associated with such as increase in fundal height. MUSCULOSKELETAL: No significant edema noted. NEUROLOGICAL: Negative. PHYSICAL EXAMINATION: VITAL SIGNS: weight was 87.6 pounds. Height is 4 feet 11 inches. Pregravid body mass index was 18.4. Blood pressure on last evaluation was 112/68 and weight was 110 pounds. This represented a 13 pounds increase during the . heart rate was 146. GENERAL: The patient is well-developed, well-nourished, pleasant female, stated age, in no acute distress. SKIN: Warm and dry without lesions. HEENT: Neck and back within normal limits. LUNGS: Clear with good breath sounds in all lung metcalf. BREASTS: Exam is deferred and having been done at first visit with changes. ABDOMEN: Protuberant with fundal height of 38 cm. : Cervical exam last done on 11/17/2017 showed it to be closed, 50% effaced, very soft, mid position, -3. EXTREMITIES: Grossly within normal limits. NEUROLOGICAL: Grossly within normal limits. ASSESSMENT: 1. 39 and 3/7 week intrauterine , history of previous section x3 with a rent noted in the anterior uterine anatomy at the time of that section placing the patient in higher risk for separation of the uterus. The patient not desiring further procreation. Desiring repeat section and bilateral salpingectomy. The procedure, risks, benefits, possible complications, permanency of bilateral salpingectomy all discussed with the patient. She appears to understand and wishes to proceed. Consent is signed. 2. Group B strep screen negative. 3. Plans to breastfeed. 4. The patient is rubella immune. PLAN: 1. Repeat lower uterine segment transverse section with bilateral salpingectomy scheduled for 12/05/2017. Consent is signed. 2. DVT prophylaxis with SCDs. 3. Infection prophylaxis with Ancef 2 g IV preop. 4. Routine preoperative labs to include CBC, urinalysis, type and screen. 5. [id number] Committee has met concerning the request for bilateral salpingectomy and has consented/given approval for this to be performed. MMODAL /[id number]
[2017-12-05] MEDS ORDERED: Lactated Ringers 1,000 ML ONE (08:57)
[2017-12-05] MEDS ORDERED: diphenhydrAMINE 50 MG/ML SDV IVPUSH PRN ×2 (09:32→11:02)
--- NOTE | 2017-12-05 09:34 | PCM.POSTAN ---
POST ANESTHESIA ASSESSMENT - MENTAL STATUS Mental Status: Alert, Oriented - VITAL SIGNS Pulse Rate: 60 SaO2: 100 Resp Rate: 12 Blood Pressure: 109/73 Temperature: 96.9 F - RESPIRATORY Respiratory Status: Respiratory Rate WNL, Airway Patent, O2 Saturation Stable, Supplemental Oxygen - CARDIOVASCULAR CV Status: Pulse Rate WNL, Blood Pressure Stable - GASTROINTESTINAL GI Status: No Symptoms - PAIN Pain Score: 5 (sore) - POST OP HYDRATION Hydration Status: Adequate & Stable
[2017-12-05] MEDS: fentaNYL 100 MCG/2 ML SDV IVPUSH PRN ×2 (09:43→10:15)
--- NOTE | 2017-12-05 09:45 | PCM.OPNOTE ---
- General Post-Op/Procedure Note Date of Surgery/Procedure: 12/05/17 Operative Procedure(s): 1. Repeat lower uterine segment transverse section through Pfannenstiel skin incision. 2. Bilateral salpingectomy Findings: Uterus, tubes and ovaries were moderately to severely scarred anteriorly. Uterus was approximately 1-2 mm thick at the site of the low transverse scar. Baby is in vertex presentation. Amniotic fluid is clear. Ovaries were consistent with term . Pre Op Diagnosis: 1. 3 9-3/7 week intrauterine , history of previous section 2 with desire for repeat section. 2. History of previous rent in the anterior uterus at time of last Post-Op Diagnosis: Same Anesthesia Technique: Spinal Other Anesthesia Type: Marcaine 0.5% 20 mL local Primary Surgeon: Atilio Paz Secondary Surgeon: Deven Wood Anesthesia Provider: Murtaza Diaz Access Control Officer: Tonya Smallwood Reason Access Control Officer Was Necessary: Retraction, assistance, quality of care, patient safety Role of Access Control Officer: Same Pathology: 1. Left fallopian tube 2. Right fallopian tube Fluid Replacement, Intraop: 3,600 Output, Urine Amount: 425 EBL in mLs: 1,500 Drain/Tube Comments:: Indwelling bladder catheter Complications: None Condition: Undetermined Free Text/Narrative:: Surgery duration: 91 minutes Procedure: The patient is appropriately consented. Patient was transferred to the room and placed in a sitting position. Spinal anesthesia was administered. After confirmation of adequate anesthesia patient was placed in a supine position with a wedge under her right side to facilitate left lateral positioning. The patient was prepped and draped in usual fashion after Bar catheter was already placed . The anesthetic was checked and found to be adequate. 20 mL of Marcaine 0.5% was injected locally in the Pfannenstiel incision site. The Pfannenstiel skin incision was then made, effectively removing the old scar, and carried down through skin, subcutaneous and fascial layers. The fascia was then undermined superiorly and inferiorly to allow for adequate operating room. The recti muscles midline and preperitoneal fat was bluntly dissected. moderate amount of scarring was noted especially on patient's left side. Peritoneal cavity was entered longitudinally. The vesicouterine peritoneum was then incised transversely and bladder flap was developed. Myometrium was incised transversely to the level of the amniotic sac. the lower incision was approximate 1-2 mm thick. This incision was extended bilaterally in a blunt fashion. The amniotic sac was then ruptured resulting in clear amniotic fluid. A hand is placed in the low uterine segment and the baby's head was brought forth through the incision. The baby was completely delivered using fundal pressure in a routine fashion. The nose and mouth were bulb suctioned. Baby's cord was clamped x2 cut and baby was handed off to attending lead ramp agent Dr Zambrano. Placenta was expressed after cord blood was obtained. Uterus was then exteriorized to allow for easier closure. The cervix was assessed and found to be dilated adequately to allow egress of blood. The uterus was closed in 2 layers. The first layer a running locked suture of 0 Monocryl, the second layer a running locked vertical mattress suture of 0 Monocryl. [id number] suture was placed at mid incision to control 1 bleeder. Hemostasis confirmed at this time. The left fallopian tube was then elevated with Criselda clamp and using hemostats the nasal salpinx was cross clamped. The was retrieved tie ligated with 0 Monocryl. Some bleeding was noted in the area of the proximal fallopian tube involving the uterine vasculature/venous blood vessels. Was eventually controlled with multiple suture ligatures and free ties. Gelfoam was placed in this area at the end of the procedure. The right tube was then elevated and removed in similar fashion with each of the mesosalpinx being free tie ligated. Stasis confirmed at this time. The specimen was sent as #1 and #2 respectively. Remaining Gelfoam cut from the larger pieces and placed in the area of the uterine incision. Patient was noted to have generalized small venous oozing. This was felt to be under good control at the end of the case. Sponge, instrument and needle counts are correct. The uterus was returned to the abdominal cavity and lateral gutters were cleared of blood. Once again sponge needle counts are correct. The anterior abdominal wall was closed with a #1 PDS suture from angle to angle. The subcutaneous area was found to have some venous bleeders. These are controlled cautery and/or suture ligatures. The skin was closed with a running subcuticular stitch of 3-0 Monocryl in a vertical mattress suture fashion using a Tanner needle. Mastisol was applied and the skin was further approximated with half-inch Steri-Strips. It should be noted that patient received 2 g of Ancef preoperatively for infection prophylaxis and had Pitocin infused after delivery of the placenta to facilitate uterine contraction. She also had sequential compression stockings in place for DVT prophylaxis. Patient was discharged from the operating room in satisfactory condition.
[2017-12-05] MEDS ORDERED: Naloxone 0.4 MG/ML SDV IVPUSH PRN (11:02)
[2017-12-05] MEDS ORDERED: ePHEDrine 50 MG/ML SDV IVPUSH PRN (11:02)
[2017-12-05] MEDS ORDERED: Ondansetron 4 MG/2 ML SDV IV PRN (11:02)
[2017-12-05] MEDS ORDERED: Lanolin 100% Cream 7 GM Tube TOP PRN (11:02)
[2017-12-05] MEDS ORDERED: Dextrose 5%-Lactated Ringers 1,000 ML IV SCH (11:02)
[2017-12-05] MEDS ORDERED: Docusate Sodium 100 MG Cap PO PRN (11:02)
[2017-12-05] MEDS: Acetaminophen/oxyCODONE 325-5 MG Tab PO PRN ×2 (14:13→19:49)
[2017-12-06] MEDS: Acetaminophen/oxyCODONE 325-5 MG Tab PO PRN ×4 (00:56→20:00)
--- NOTE | 2017-12-06 08:07 | PCM48HPAN ---
Post Anesthesia Note - EVALUATION WITHIN 48HRS OF ANESTHETIC Vital Signs in Normal Range: Yes Patient Participated in Evaluation: Yes Respiratory Function Stable: Yes Airway Patent: Yes Cardiovascular Function Stable: Yes Hydration Status Stable: Yes Pain Control Satisfactory: Yes Nausea and Vomiting Control Satisfactory: Yes Mental Status Recovered: Yes - COMMENTS/OBSERVATIONS Free Text/Narrative:: Doing well. Patient denies any anesthetic complications
[2017-12-06] MEDS: Ferrous Sulfate 325 MG Tab PO SCH ×2 (09:04→23:02)
--- NOTE | 2017-12-06 12:41 | PCM.SN ---
- Free Text/Narrative Note: note: Patient is doing well in the period. Minimal lochia, voiding well, ambulated without problems. Nursing without concerns. Patient is afebrile, vital signs are stable Abdomen is flat, soft, uterus is below the umbilicus and is firm and nontender. Incision appears to be healing well. No significant discharge noted. Legs are nontender. Hemoglobin 7.3. Patient doing reasonably well Clinically. Assessment: recovery going well. Plan: Routine care. Patient be discharged home within the next 48 hours.
[2017-12-06] MEDS: Ibuprofen 600 MG Tab PO PRN (13:53)
[2017-12-07] MEDS: Acetaminophen/oxyCODONE 325-5 MG Tab PO PRN ×3 (03:02→15:39)
[2017-12-07] MEDS: Ibuprofen 600 MG Tab PO PRN ×3 (06:23→18:19)
[2017-12-07] MEDS: Ferrous Sulfate 325 MG Tab PO SCH ×2 (06:24→18:59)
[2017-12-07] MEDS ORDERED: Bisacodyl 10 MG Supp RECTAL PRN (12:33)
--- NOTE | 2017-12-07 16:23 | PCM.SN ---
- Free Text/Narrative Note: S: Patient reports having discomfort with constipation. Pain is well managed and improving. Denies chest pain, shortness of breath and nausea. She is walking and tolerating diet. O: T- 97.4, HR - 104, BP - 110/66 RR- 17, O2- 99. Physical exam reveals distended abdomen and discomfort with palpitation in all quadrants, but more so on the right side. Surgical incision has clean margins with no signs of infection or drainage. Cardiovascular was tachycardic with normal rhythm. Normal breath sounds throughout lung metcalf. No swelling or tenderness in legs. WBC: 8.03 --> 9.09 RBC: 2.77 -->3.04 HgB: 7.3 --> 7.8 Plt: 162 --> 232 Assessment: This is a 32 yo female G5 P 4-0-1-4 who is post op day 2 from a section. She is anemic, constipated and recovering from major surgery. Plan: 1.) Anemia: Iron supplementation 2.) Constipation- Laxatives, stool softeners and enema. Encourage activity to increase gut motility 3.) Continue to monitor patient for any signs of infection or small bowel obstruction. 4.) If bowel movement or gas is passed. Will plan to discharge tomorrow
[2017-12-08] MEDS: Acetaminophen/oxyCODONE 325-5 MG Tab PO PRN ×3 (01:11→11:10)
[2017-12-08] MEDS: Ferrous Sulfate 325 MG Tab PO SCH (06:00)
--- NOTE | 2017-12-08 06:07 | PCM.DCSUM1 ---
Discharge Summary - Hospital Course Free Text/Narrative:: Rea is a 32-year-old multigravida white female who was admitted on 2017 for elective repeat section with bilateral salpingectomy. Patient had previous C-sections 3 and is desiring repeat section. Previous section she was noted to have a uterine window present in the lower uterine segment where uterine wall and with only membranes and peritoneum attaining the amniotic fluid. It was decided for her benefit and benefit of potential future pregnancies that bilateral salpingectomy should be performed. This was improved from the ethics committee at [facility] undertaken. Please see operative report dated 12/05/2017 for details. Patient delivered viable reeves . During the course of her surgery she had moderate amount of bleeding from the left adnexal area was sutured. Postoperatively patient is bottle feeding. She has recovered well. She Guevara well. Her hemoglobin is at 7.8 but patient clinically seems to be doing well. Pain is under good control. She appears to have no further bleeding. She is voiding well. Incision appears to be well-healed her vital signs stable. Patient is desiring discharge home. Diagnosis: Stroke: No - Discharge Data Discharge Date: 12/08/17 Discharge Disposition: Home, Self-Care 01 Condition: Undetermined - Patient Summary/Data Operative Procedure(s) Performed: 1. Repeat lower uterine segment transverse section through Pfannenstiel skin incision. 2. Bilateral salpingectomy - Patient Instructions Diet: Regular Diet as Tolerated Activity: As Tolerated (No intercourse or tampons until seen back. No lifting greater than 15 pounds or driving a car 1 week.) Driving: Do Not Drive Showering/Bathing: May Shower Wound/Incision Care: Keep Operative Site/Wound Site Clean and Dry Notify Provider of: Fever, Increased Pain, Swelling and Redness, Drainage, Nausea and/or Vomiting - Discharge Plan Home Medications: Home Meds Vits #93/Iron Fum/FA [ Formula Tablet] 1 tab PO DAILY 12/05/17 [History] Acetaminophen/oxyCODONE [Percocet 325-5 MG] 2 tab PO Q4H PRN tablet 12/08/17 [ Rx] Ferrous Sulfate 325 mg PO BIDMEALS tablet 12/08/17 [Rx] Ibuprofen [Motrin] 600 mg PO Q4HR PRN tablet 12/08/17 [Rx] Patient Handouts: Delivery, Care After, Home Care Instructions for Mom Referrals: Atilio Paz MD [Primary Care Provider] - (Return to clinicDr. Paz2 weeks.) - Discharge Summary/Plan Comment DC Time >30 min.: No Discharge Summary/Plan Comment: Discharge instructions: 1. Discharge home 2. Diet, activity and follow-up discussed with patient. Recommend nursing diet with increased calories and calcium. 3. Precautions given concern increased pain, bleeding, temperature, signs/ symptoms of DVT/PE. 4. Medications per home medication was printed, discussed with and given to the patient. 5. Return to clinic-Dr. Paz[facility] in 2 weeks. Diagnosis: Term -delivered Condition: Good - Patient Data Vitals - Most Recent: Last Vital Signs Temp 36.8 C 12/07/17 20:00 Pulse 80 12/07/17 20:00 Resp 16 12/07/17 20:00 BP 105/61 12/07/17 20:00 Pulse Ox 100 12/07/17 20:00 Weight - Most Recent: 50.802 kg I&O - Last 24 hours: Intake & Output 12/07/17 12/07/17 12/08/17 14:59 22:59 06:59 Intake Total 120 240 Balance 120 240 Lab Results - Last 24 hrs: Laboratory Results - last 24 hr 12/07/17 Range/Units 06:20 WBC 9.09 (3.98-10.04) K/mm3 RBC 3.02 L (3.98-5.22) M/mm3 Hgb 7.8 L (11.2-15.7) gm/L Hct 25.5 L (34.1-44.9) % MCV 84.4 (79.4-94.8) fl MCH 25.8 (25.6-32.2) pg MCHC 30.6 L (32.2-35.5) g/dl RDW Std Deviation 56.5 H (36.4-46.3) fL Plt Count 232 (182-369) K/mm3 MPV 11.2 (9.4-12.3) fl Neut % (Auto) 77.1 H (34.0-71.1) % Lymph % (Auto) 15.5 L (19.3-51.7) % Mitchell % (Auto) 5.2 (4.7-12.5) % Eos % (Auto) 1.9 (0.7-5.8) Baso % (Auto) 0.1 (0.1-1.2) % Neut # (Auto) 7.01 H (1.56-6.13) K/mm3 Lymph # (Auto) 1.41 (1.18-3.74) K/mm3 Mitchell # (Auto) 0.47 H (0.24-0.36) K/mm3 Eos # (Auto) 0.17 (0.04-0.36) K/mm3 Baso # (Auto) 0.01 (0.01-0.08) K/mm3 Manual Slide Review Abnormal smear Med Orders - Current: Current Medications Bisacodyl (Dulcolax) 10 mg RECTAL BID PRN PRN Reason: Constipation Last Admin: 12/07/17 12:53 Dose: 10 mg Diphenhydramine HCl (Benadryl) 25 mg IVPUSH Q6H PRN PRN Reason: Itching or Nausea Docusate Sodium (Colace) 100 mg PO Q12H PRN PRN Reason: Constipation Last Admin: 12/06/17 23:02 Dose: 100 mg Emollient Ointment (Lansinoh Hpa) 0 gm TOP ASDIRECTED PRN PRN Reason: Sore Nipples Ephedrine Sulfate (Ephedrine Sulfate) 5 mg IVPUSH SEECOMMENT PRN PRN Reason: Other Ferrous Sulfate (Ferrous Sulfate) 325 mg PO BIDMEALS [facility] Last Admin: 12/08/17 06:00 Dose: 325 mg Ibuprofen (Motrin) 600 mg PO Q4HR PRN PRN Reason: Pain Last Admin: 12/07/17 18:19 Dose: 600 mg Naloxone HCl (Narcan) 0.1 mg IVPUSH SEECOMMENT PRN PRN Reason: Respiratory Depression Ondansetron HCl (Zofran) 4 mg IV Q4H PRN PRN Reason: Nausea/Vomiting Oxycodone/Acetaminophen (Percocet 325-5 Mg) 2 tab PO Q4H PRN PRN Reason: Pain (moderate 4-6) Last Admin: 12/08/17 05:59 Dose: 2 tab Discontinued Medications Bupivacaine HCl (Marcaine 0.5%) Confirm Administered Dose 30 ml .ROUTE .STK-MED ONE Stop: 12/05/17 07:04 Last Admin: 12/05/17 07:48 Dose: 20 ml Bupivacaine HCl/Dextrose (Marcaine 0.75% Spinal) Confirm Administered Dose 2 ml .ROUTE .STK-MED ONE Stop: 12/05/17 06:49 Cefazolin Sodium (Ancef) Confirm Administered Dose 2 gm .ROUTE .STK-MED ONE Stop: 12/05/17 06:44 Citric Acid/Sodium Citrate (Bicitra Solution) 30 ml PO ONETIME ONE Stop: 12/05/17 04:41 Last Admin: 12/05/17 07:10 Dose: 30 ml Diphenhydramine HCl (Benadryl) 25 mg IVPUSH Q6H PRN PRN Reason: pruritis Ephedrine Sulfate (Ephedrine In Ns) Confirm Administered Dose 25 mg .ROUTE .STK- MED ONE Stop: 12/05/17 07:38 Fentanyl (Sublimaze) 50 mcg IVPUSH Q5M PRN PRN Reason: Pain Stop: 12/05/17 10:00 Last Admin: 12/05/17 10:15 Dose: 25 mcg Gelatin (Gelfoam Size 100) Confirm Administered Dose 1 each TOP .STK-MED ONE Stop: 12/05/17 13:50 Last Admin: 12/05/17 08:59 Dose: 1 each Cefazolin Sodium/Dextrose 2 gm (/ Premix) 50 mls @ 100 mls/hr IV ONETIME ONE Stop: 12/05/17 05:09 Last Admin: 12/05/17 12:09 Dose: Not Given Lactated Ringer's (Ringers, Lactated) 1,000 mls @ 125 mls/hr IV ASDIRECTED [facility] Last Admin: 12/05/17 07:10 Dose: 125 mls/hr Oxytocin/Lactated Ringer's (Pitocin In Lr 10 Units/1,000 Ml) 10 unit in 1,000 mls @ 100 mls/hr IV ASDIRECTED [facility] Oxytocin 20 unit/ Lactated (Ringer's) 1,002 mls @ 100 mls/hr IV TITRATE LALITA Lactated Ringer's (Ringers, Lactated) Confirm Administered Dose 2,000 mls @ as directed .ROUTE .STK-MED ONE Stop: 12/05/17 06:44 Lidocaine HCl (Xylocaine-Mpf 1%) Confirm Administered Dose 4 mls @ as directed .ROUTE .STK-MED ONE Stop: 12/05/17 06:48 Lactated Ringer's (Ringers, Lactated) Confirm Administered Dose 1,000 mls @ as directed .ROUTE .STK-MED ONE Stop: 12/05/17 08:58 Dextrose/Lactated Ringer's (Dextrose 5%-Lactated Ringers) 1,000 mls @ 125 mls/ hr IV ASDIRECTED [facility] Stop: 12/05/17 19:01 Last Admin: 12/05/17 14:13 Dose: 125 mls/hr Ketorolac Tromethamine (Toradol) Confirm Administered Dose 30 mg .ROUTE .ST- MED ONE Stop: 12/05/17 06:44 Metoclopramide HCl (Reglan) 10 mg IVPUSH ONETIME ONE Stop: 12/05/17 04:41 Last Admin: 12/05/17 07:10 Dose: 10 mg Morphine Sulfate (Duramorph Pf) Confirm Administered Dose 1 mg .ROUTE .STK-MED ONE Stop: 12/05/17 06:51 Nalbuphine HCl (Nubain) 10 mg IVPUSH Q2H PRN PRN Reason: pain Ondansetron HCl (Zofran) Confirm Administered Dose 4 mg .ROUTE .STK-MED ONE Stop: 12/05/17 06:44 Ondansetron HCl (Zofran) 4 mg IVPUSH ONETIME PRN PRN Reason: Nausea/Vomiting Stop: 12/05/17 10:00 Oxytocin (Pitocin) Confirm Administered Dose 10 unit .ROUTE .STK-MED ONE Stop: 12/05/17 06:44 Oxytocin (Pitocin) Confirm Administered Dose 10 unit .ROUTE .STK-MED ONE Stop: 12/05/17 06:46 Sodium Chloride (Saline Flush) 10 ml FLUSH ASDIRECTED PRN PRN Reason: Keep Vein Open
[2017-12-08] MEDS: Ibuprofen 600 MG Tab PO PRN (10:32)
[2017-12-08 10:35] VITALS: BP 111/72
== END 2017-12-08 11:20 | disposition home or self-care (01) | DRG 766 ==
LOC: JD.OB 05:35
PROVIDERS: ADMIT Obstetrics & Gynecology; ATTEND Obstetrics & Gynecology
PROC: 6A550ZT Pheresis of Cord Blood Stem Cells, Single (ICD-10-PCS; principal; 2017-12-05)
PROC: 10D00Z1 Extraction of Products of Conception, Low, Open Approach (ICD-10-PCS; principal; 2017-12-05)
PROC: 0UT70ZZ Resection of Bilateral Fallopian Tubes, Open Approach (ICD-10-PCS; principal; 2017-12-05)
DX: O34.211 Maternal care for low transverse scar from previous cesarean delivery (principal); N85.8 Other specified noninflammatory disorders of uterus; Z37.0 Single live birth; Z3A.39 39 weeks gestation of pregnancy; O99.63 Diseases of the digestive system complicating the puerperium; K59.00 Constipation, unspecified; O90.81 Anemia of the puerperium; D64.9 Anemia, unspecified; O75.89 Other specified complications of labor and delivery; Z30.2 Encounter for sterilization
CPT/HCPCS: 01961; 36415; 59025; 85025; 85027; 86592; 86850; 86900; 86901; 94762; A9270-GY; J0690; J1885; J2001; J2274; J2405; J2590; J2765; J3010; J3490; J7042; J7050; J7120